=== PATIENT | male | born 1960 ===

== ENCOUNTER 2024-05-19 09:46 | Day surgery (SDC) | payer BC, SELFPAY ==
[2024-05-19 11:57] VITALS: BP 127/90
[2024-05-19 11:58] VITALS: BMI 30.9
[2024-05-19 14:45] VITALS: BP 112/91
[2024-05-19 15:01] VITALS: BP 120/81
== END 2024-05-19 15:15 | disposition home or self-care (01) ==
LOC: GI 09:46
PROVIDERS: ATTENDING PHYSICIAN Internal Medicine Gastroenterology
DX: D12.2 Benign neoplasm of ascending colon (principal); K64.0 First degree hemorrhoids; D12.4 Benign neoplasm of descending colon
CPT/HCPCS: 45390; 45385; 88305

== ENCOUNTER 2024-05-19 22:30 | Inpatient (IN) | payer BC, SELFPAY ==
[2024-05-19 19:39] VITALS: BP 118/69
[2024-05-19 20:12] LABS: % Basophils 0.1 % (0-2); % Immature Granulocytes 0.6 % (0-0.5); % Lymphocytes 3.5 % (20.5-51.1); % Monocytes 5.8 % (1.7-9.3); Absolute Immature Granulocytes 0.1 10^3/uL (0-0.05); Absolute Lymphocytes 0.5 10^3/uL (1.2-3.4); Absolute Monocytes 0.8 10^3/uL (0.1-0.6); Absolute Neutrophils 12.5 10^3/uL (1.4-6.5); Hematocrit 42.4 % (39.0-52.0); Hemoglobin 15.4 g/dL (13.0-18.0); Mean Corp Hgb Conc. 36.3 g/dL (33.0-37.0); Mean Platelet Volume 8.8 fL (7.4-10.4); Nucleated Red Blood Cells % 0 % (-); Platelet Count 283 10^3/uL (130-400); Red Blood Cell Count 4.66 10^6/uL (4.70-6.10); Red Cell Dist. Width 12.8 % (11.5-14.5); White Blood Cell Count 13.9 10^3/uL (4.8-10.8)
--- NOTE | 2024-05-19 20:22 | ED.GENMED ---
History of Present Illness
General
Chief Complaint: Fever
Time Seen by Provider: 05/19/24 20:22
History of Present Illness
History of Present Illness:
HPI: The patient had a colonoscopy with [address] Eugene today. He has had no appetite since 2 nights ago. He has had poor p.o. intake. He developed a fever today. After Tylenol was given he feels somewhat improved. However he has
some vague abdominal. He has had no passage of gas in over a day.
EXAM:
GENERAL: Well appearing in no distress
HEENT: Moist oral mucosa
CARDIOVASCULAR: No murmurs, tachycardic heart rate, regular rhythm, No chest wall tenderness
PULMONARY: No respiratory distress, breath sounds are clear and equal
ABDOMEN: Soft with no peritoneal signs, minimal abdominal tenderness
NEUROLOGIC: Excellent strength all extremities, no coordination deficits
PSYCHIATRIC: Appropriate mental status, normal insight and judgement
EXTREMITIES: Nontender, no edema, moves all extremities equally
SKIN: No rash, no lesions
TIME OF INITIAL ENCOUNTER: 8:30 PM
NUMBER AND COMPLEXITY OF PROBLEMS ADDRESSED AT THE ENCOUNTER
� Chronic conditions affecting care: No significant past medical
� Acute Exacerbation and/or Progression of Chronic Illness: This is an acute problem
� Differential Diagnosis includes: Postprocedural fever, postprocedural gastroparesis, viral syndrome, dehydration, NIDHI
AMOUNT AND/OR COMPLEXITY OF DATA TO BE REVIEWED AND ANALYZED
� I performed an independent evaluation of and my interpretation is:
EKG:
CT: CAT scan personally viewed. Trace free air lateral to the cecum suspicious for small focal perforation
X-rays:
Laboratory Studies: White count 13.9, hemoglobin 15.4, chemistries unremarkable other than bicarb of 20,
Other:
� Review of other/old records: I reviewed the colonoscopy report by Dr. Eugene�3 polyps were removed and the patient also received APC and clips
� Clinical information was obtained by an independent historian: I spoke to the at bedside
� Prescriptions/Medications Considered but not given:
� Further testing considered but not performed:
RISK OF COMPLICATIONS AND/OR MORBIDITY OR MORTALITY OF PATIENT MANAGEMENT
� Social determinants of health affecting care: Lives at home
� Discussion with other providers: Notified GI, Dr. Slade and colorectal surgery, Dr. Trista Slade recommends n.p.o. and antibiotics; hospitalist, Dr. Hughes, for admission
� Escalation of care including admission/observation vs risk of discharge considered: The patient is tachycardic but afebrile here. He reportedly was febrile earlier. His white count of 13.9 with 90% neutrophils. Given the
obstipation with some vague abdominal discomfort after procedure, CT imaging obtained.
Phy Exam
Physical Exam
Physical Exam:
See HPI
Course
Orders/Labs/Results
Orders:
Orders
05/19/24 20:07
COVID-19 Antigen Urgent
Source: Nasal Swab
Complete Blood Count/With Diff Urgent
Comprehensive Metabolic Panel Urgent
05/19/24 20:29
CT Abd/pelvis W Iv Cont Urgent
Comment:
Reason For Exam: post colonoscopy fever, WBC 13.9, obstipation
0.9% Sodium Chloride 1000 ml [Nss] 1,000 ml IV BOLUS
05/19/24 21:44
Piperacillin/Tazo 3.375 Gram [Zosyn] 3.375 gram in 50 ml IV NOW
05/19/24 21:49
NSS 1000mL Bolus WIDE OPEN 0.9% Sodium Chloride 1000 ml [Nss] 1,000 ml IV BOLUS
Abnormal Lab Results
05/19/24
20:07
WBC 13.9 H 10^3/uL
(4.8-10.8)
RBC 4.66 L 10^6/uL
(4.70-6.10)
MCH 33.0 H pg
(27.0-31.0)
Abs Immat Gran (auto) 0.1 H 10^3/uL
(0-0.05)
Absolute Neuts (auto) 12.5 H 10^3/uL
(1.4-6.5)
Absolute Lymphs (auto) 0.5 L 10^3/uL
(1.2-3.4)
Absolute Monos (auto) 0.8 H 10^3/uL
(0.1-0.6)
Immature Gran % 0.6 H %
(0-0.5)
Neutrophils % 90.0 H %
(42.2-75.2)
Lymphocytes % 3.5 L %
(20.5-51.1)
Carbon Dioxide 20 L mmol/L
(22-30)
Glucose 154 H mg/dl
(70-99)
05/19/24 20:07
05/19/24 20:07
Vital Signs
Initial and Last Documented VS:
Initial Vital Signs
Temp Pulse Resp BP Pulse Ox
98.2 F 127 18 118/69 94
05/19/24 19:39 05/19/24 19:39 05/19/24 19:39 05/19/24 19:39 05/19/24 19:39
Last Documented Vital Signs
Temp Pulse Resp BP Pulse Ox
98.2 F 127 18 118/69 94
05/19/24 19:39 05/19/24 19:39 05/19/24 19:39 05/19/24 19:39 05/19/24 19:39
*Critical Care Note
Total Time (30-74mins, 75-104mins- exclusive of procedures): Not Applicable
ED Attending Note
-
Portions of this chart may have been created with voice recognition software.� Occasional wrong word or��sound alike� substitutions may have occurred due to the inherent limitations of voice recognition software.
Discharge Plan
Departure
Patient Disposition: Admit
Date of Disposition: 05/19/24
Time of Disposition: 21:46
Presentation/result/management discussed w/ accepting MD/DO: Hospitalist
Discharge Problem:
Abnormal CT of the abdomen, Fever
Prescriptions:
No Action
aspirin [Aspir-81] 81 mg Tablet,Delayed Release (Dr/Ec)
81 mg PO DAILY
multivitamin
1 tab PO DAILY
Interventions
Interventions:
*Risk Screen - Suicide Last Done: 05/19/24 19:39
*General Assessment Last Done: 05/19/24 19:39
*Neglect/Abuse Screening Last Done: 05/19/24 19:39
ED- Fall Risk Assessment Last Done: 05/19/24 20:43
ED- Neurological Assessment Last Done: 05/19/24 20:43
ED-Skin Assessment Last Done: 05/19/24 20:43
Discharge Date and Time
Print Language: CENTRAL AFRICAN
[2024-05-19 20:29] LABS: COVID-19 Antigen Negative (Negative)
[2024-05-19 20:32] LABS: ALT (SGPT) 39 U/L (0-50); AST (SGOT) 37 U/L (17-59); Albumin 4.4 g/dl (3.5-5.0); Alkaline Phosphatase 67 U/L (38-126); Blood Urea Nitrogen 14 mg/dl (9-20); Calcium 9.4 mg/dl (8.4-10.2); Carbon Dioxide 20 mmol/L (22-30); Chloride 102 mmol/L (98-107); Glucose 154 mg/dl (70-99); Sodium 135 mmol/L (135-145); Total Bilirubin 0.7 mg/dl (0.2-1.3); eGFR > 60.00
[2024-05-19] MEDS: NSS 1000 IV ×2 (20:41→22:07)
--- NOTE | 2024-05-19 21:45 | HPS.HSE ---
Family Physician
-
Family Physician:
Chief Complaint
-
abdominal pain
History of Present Illness
4-year-old with past medical history for A-fib, status postcardiac ablation sleep apnea who underwent colonoscopy and had a 17 mm, 8 mm, 30mm polyps removed from ascending colon , presented to us with no appetite since the colonoscopy . Patient
also complained of abdominal distention, pain and nauseous . He had a temp of 100.2 at home . Patient stated very dizzy, chills. He has had no passage of gas since the colonoscopy. Denied headache. Patient denied chest pain, short of breath.
Denied dysuria hematuria.
Patient received normal saline and Zosyn in ER admitting for further management.
Medical History
Past Medical History
Past Medical History: Reports Other
Additional Past Medical History:
Osteoarthritis
Sleep apnea
Atrial fibs status post cardiac ablation
Punctured lung
Past Surgical History: Reports Other
Additional Past Surgical History:
Cardiac ablation
b/l knee replacement
Social History
Tobacco: Non-smoker
Alcohol: Occasional
Drug: None
Personal:
Living: With Family
Family History
Family History: Not pertinent
Allergies / Home Medications
Allergies reflects when Allergies were last updated in [email or web address].
Home Medications with original date entered in [email or web address]
Allergy/Medication List:
Allergies
Allergy/AdvReac Type Severity Reaction Status Date / Time
No Known Allergies Allergy Unverified 05/19/24 11:45
Home Medications
aspirin 81 mg tablet,delayed release 81 mg PO DAILY 05/19/24
multivitamin 1 tab PO DAILY 05/19/24
Review of Systems
-
Constitutional: Reports No Symptoms
EENT: Reports No Symptoms
Respiratory: Reports No Symptoms
Cardiac: Reports No Symptoms
Abdomen/GI: Reports Abdominal Pain and Nausea
: Reports No Symptoms
Musculoskeletal: Reports No Symptoms
Skin: Reports No Symptoms
Neurological: Reports No Symptoms
Endocrine: Reports No Symptoms
Hematologic/Lymphatic: Reports No Symptoms
Psych: Reports No Symptoms
Physical Exam
Vital Signs
Vital Signs
Temp Pulse Resp BP Pulse Ox
98.2 F 127 18 118/69 94
05/19/24 19:39 05/19/24 19:39 05/19/24 19:39 05/19/24 19:39 05/19/24 19:39
Physical Exam
General: Well Developed, Well Nourished and No Apparent Distress
HEENT: NormoCephalic, Moist mucous membranes and Atraumatic
Respiratory: Clear
Cardiac: S1/S2 and Regular Rhythm; No Murmur or Rub
GI: Soft, Non Tender, Tender and Distended; No Organomegaly
Rectal: Deferred by Provider
Musculoskeletal: No Clubbing, No Cyanosis and No Edema
Skin: No Rash
Neuro: Nonfocal/grossly intact
Laboratory Results
-
05/19/24 20:07
05/19/24 20:07
Laboratory Results
Total Bilirubin 0.7 mg/dl (0.2-1.3) 05/19/24 20:07
AST 37 U/L (17-59) 05/19/24 20:07
ALT 39 U/L (0-50) 05/19/24 20:07
Alkaline Phosphatase 67 U/L (38-126) 05/19/24 20:07
Data Reviewed
-
CT Scan: Report Reviewed by me
Lab Data: Labs Reviewed by me
Impression/Plan
-
# Chills/fever/abdominal pain likely from focal perforation/polypectomy bleeding
-As per GI we will keep patient n.p.o.
-WBC 13.9, hemoglobin 15.4
-CT abdomen pelvis with impression of endoclips present within the cecum. There is adjacent trace free air lateral to the cecum, suspicious for small focal perforation.Colonic diverticulosis without evidence of diverticulitis.
-Will continue IV Zosyn
-GI and surgery consulted
-Tylenol prn for pain
-Dilaudid prn for pain
-Zofran prn for n/v
# History of A-fib
-Will obtain EKG
-Status post cardiac ablation
-patient not on any antiarrhythmic or AC
# History of sleep apnea
-CPAP continued
# DVT prophylaxis
-SCDs
# CODE STATUS
-full code
--- NOTE | 2024-05-19 22:06 | W.PN.UPDATE ---
Update Note
Progress Note Update
This note serves as an addendum to the H&P by qualitative executive researcher JUNIE Veronica BURTON
HPI
64M no significant PMHX s/p colonoscopy with [address] Eugene today.
- report no passage of gas since colonoscopy
- associated with vague abdominal pain
- report onset of fever today. took Tylenol and improved. NEG Covid at ER.
- Reports poor appetite and poor PO intake for last 2 days since 2 nights ago.
Reviewed VS: Afebrile, HR 127, BP 118/70
PE
Gen: Not toxic , NAD
HEENT: anicteric
Neck: supple
Lungs: CTA
Cor: RRR S1 S2
Abdomen: Soft , mildly distended, Mild RLQ tenderness,
DIRECTOR BANKING: AAO3, NFND
MS: No edema
Psych: appropriate
Data
WCC 13.9
Hgb 15.4
Unremarkable BMP
NEG Covid
CT Abd/pelvis W Iv Cont
- Endo clips present within the cecum.
- There is adjacent trace free air lateral to the cecum, suspicious for small focal perforation.
- Colonic diverticulosis without evidence of diverticulitis.
NO PRIOR hospitalist admission:
ASSESSMENT & PLAN
Pending Rx reconciliation
New onset fever 100.5 with chills and rigors
Associated acute RLQ vague abdominal pain and loss passage of gas
s/p colonoscopy ; 3 polyps removed/APC/clips this afyter noon
- Hemodynamically stable
- Abn CT W Iv Cont : adjacent trace free air lateral to the cecum, suspicious for small focal perforation.
- NPO and IVF
- held ASA for last 2 weeks
- Empiric Zosyn
- PRN Analgesia
- Anti emetics PRN
- Trend Hgb and WCC
- GI and CRS consulted
HX A fib s/p cardiac ablation 3 yrs ago, only on ASA
- cont to hold ASA
- EKG
OSAon 4cm H20 CPAP HS
DVT Px: SCD
Code: Full code
IP TLM
[2024-05-19] MEDS: ZOSYN 50 IV (22:07)
[2024-05-19 22:11] VITALS: BP 109/62
[2024-05-20] VITALS (7 sets, daily range): BP systolic 93–125; BP diastolic 55–77; BMI 31.8
[2024-05-20] MEDS: NSS 1000 IV ×2 (01:21→15:20)
[2024-05-20] MEDS: ZOSYN 50 IV ×4 (03:49→20:21)
[2024-05-20 08:03] LABS: Hematocrit 39.6 % (39.0-52.0); Hemoglobin 13.7 g/dL (13.0-18.0); Mean Corp Hgb Conc. 34.6 g/dL (33.0-37.0); Mean Corpuscular Hgb 32.9 pg (27.0-31.0); Mean Corpuscular Volume 95.2 fL (80.0-94.0); Mean Platelet Volume 9.2 fL (7.4-10.4); Platelet Count 237 10^3/uL (130-400); Red Blood Cell Count 4.16 10^6/uL (4.70-6.10)
--- NOTE | 2024-05-20 08:45 | CON.GI ---
Addendum entered and electronically signed by Darrin Slade MD 05/20/24 11:14:
I saw and examined the patient.
The SHEET METAL APPRENTICE's note was reviewed and I agree with the note.
-- History of large colon polyps-s/p colonoscopy with EMR 05/19 -details below. Admitted with abdominal pain/fever/chills/leukocytosis. CT imaging showing small focal perforation in the cecum. Possible component of post polypectomy
syndrome as well .
plan
N.p.o.
Continue IV antibiotic
Continue IV fluid
Colorectal surgery on board
will follow
Original Note:
Consultation
-
Date/Time Consultation Requested: 05/19/242206
Date/Time Consultation Performed: 05/19/24829
Requesting Provider: RACHANA Miller
Performing Provider: Dr. Slade/RACHANA Orozco
Reason for Consultation: focal perforation post polypectomy
Medical History
Chief Complaint / HPI
Chief Complaint: right sided abd pain
History of Present Illness:
64-year-old male with past medical history of atrial fibrillation status postcardiac ablation, obstructive sleep apnea, osteoarthritis, history of adenomatous polyps who was here for outpatient colonoscopy yesterday for endoscopic mucosal resection
of a large colonic polyps found in January [address] Soto. The patient underwent a colonoscopy by Dr. Eugene yesterday afternoon for resection of 3 colon polyps in the ascending colon. The patient had a 6 mm polyp found in the ascending colon that
was removed with a cold snare. A 17 mm polyp found in the ascending colon that was a carpet like, and a 30 mm polyp found in the mid ascending colon (details of the removal will be detailed below). The patient states that he felt okay after the
procedure. He went home. He ate some solid food for dinner. He stated afterward he developed abdominal pain in the right upper quadrant that was dull and aching, low-grade fever of 100.2, chills and general unwell feeling. He proceeded to come
to the emergency room. Initially WBC was 13.9, currently it is 10.0, hemoglobin was 15.4 and is now 13.7, hematocrit is 39.6, platelet count 237, sodium 137, potassium 3.6, chloride 108, CO2 23, BUN 12, creatinine 1.0, glucose 99, total bilirubin
0.7, AST 37, ALT 39, alk phos 67, COVID-negative. CT of the abdomen and pelvis with oral and IV contrast obtained that showed endoclips present within the cecum. There is adjacent trace free air lateral to the cecum, suspicious for small focal
perforation. Colonic diverticulosis without evidence of diverticulitis. The patient was started on Zosyn. He states that last night he had a bowel movement approximately 3 AM. This was around and loose. His pain has improved. He only has mild
tenderness to palpation in the right upper quadrant. He is no longer febrile.
Past Medical History
Past Medical History: Arrhythmias (A-fib status post ablation) and Other (Obstructive sleep apnea, osteoarthritis, adenomatous polyps, punctured lung)
Past Surgical History: Other (Cardiac ablation, bilateral knee replacements)
Social History
Tobacco: Non-Smoker
Alcohol: Occasional
Drug: None
Personal:
Living: With Family
Family History
Family History: Other (No family history gastrointestinal malignancy or IBD)
Allergies / Home Medications
Allergy/AdvReac Type Severity Reaction Status Date / Time
No Known Allergies Allergy Unverified 05/19/24 11:45
�Medication �Instructions �Recorded
aspirin 81 mg tablet,delayed 81 mg PO DAILY 05/19/24
release
multivitamin 1 tab PO DAILY 05/19/24
Review of Systems
-
All other systems: A 12 pt ROS was Negative except as stated above in HPI
Vital Signs
Temp Pulse Resp BP Pulse Ox
97.5 F 77 14 121/74 93
05/20/24 07:12 05/20/24 07:12 05/20/24 07:12 05/20/24 07:12 05/20/24 07:12
Physical Exam
Exam
General: No Apparent Distress
HEENT: Anicteric
Respiratory: Clear (Anterior)
Cardiac: Regular Rhythm
GI: Tender (Mild tenderness pinpoint in the right upper abdomen) and Other (Softly distended, hypoactive bowel sounds)
Musculoskeletal: No Edema
Skin: Warm and Dry
Neuro: AO x 3
Psych: Calm
Results
WBC 10.0 10^3/uL (4.8-10.8) 05/20/24 06:58
Hgb 13.7 g/dL (13.0-18.0) 05/20/24 06:58
Hct 39.6 % (39.0-52.0) 05/20/24 06:58
MCV 95.2 fL (80.0-94.0) H 05/20/24 06:58
Plt Count 237 10^3/uL (130-400) 05/20/24 06:58
Absolute Neuts (auto) 12.5 10^3/uL (1.4-6.5) H 05/19/24 20:07
Sodium 135 mmol/L (135-145) 05/19/24 20:07
Potassium 4.0 mmol/L (3.5-5.1) 05/19/24 20:07
Chloride 102 mmol/L (98-107) 05/19/24 20:07
Carbon Dioxide 20 mmol/L (22-30) L 05/19/24 20:07
BUN 14 mg/dl (9-20) 05/19/24 20:07
Creatinine 1.0 mg/dL (0.7-1.3) 05/19/24 20:07
Calcium 9.4 mg/dl (8.4-10.2) 05/19/24 20:07
Total Bilirubin 0.7 mg/dl (0.2-1.3) 05/19/24 20:07
AST 37 U/L (17-59) 05/19/24 20:07
ALT 39 U/L (0-50) 05/19/24 20:07
Alkaline Phosphatase 67 U/L (38-126) 05/19/24 20:07
Diagnostic Image Results:
CT Abd/Pelvis with oral/IV contrast:
Endoclips present within the cecum. There is adjacent trace free air lateral to the cecum, suspicious for small focal perforation.
Colonic diverticulosis without evidence of diverticulitis.
Prior GI Procedures:
EGD:
Colonoscopy: 05/19/24 (Dr. Eugene) - Preparation of the colon was fair.
- Hemorrhoids found on perianal exam.
- The examined portion of the ileum was normal.
- Stool in the descending colon, in the transverse
colon, in the ascending colon and in the cecum.
- One 6 mm polyp in the ascending colon, removed with
a cold snare. Resected and retrieved.
- One 17 mm polyp in the ascending colon, removed with
mucosal resection. Resected and retrieved. Treated
with argon plasma coagulation (APC). Clips (MR
conditional) were placed.
- One 30 mm polyp in the mid ascending colon, removed
with mucosal resection. Resected and retrieved.
Treated with argon plasma coagulation (APC). Clips (MR
conditional) were placed. Tattooed.
- Internal hemorrhoids.
- Mucosal resection was performed. Resection and
retrieval were complete.
- Mucosal resection was performed. Resection and
retrieval were complete.
Assessment / Plan
-
64-year-old male with past medical history of atrial fibrillation status postcardiac ablation, obstructive sleep apnea, osteoarthritis, history of adenomatous polyps who was here for outpatient colonoscopy yesterday for endoscopic mucosal resection
of a large colonic polyps found in January [address] Soto. The patient underwent a colonoscopy by Dr. Eugene yesterday afternoon for resection of 3 colon polyps in the ascending colon. The patient had a 6 mm polyp found in the ascending colon that
was removed with a cold snare. A 17 mm polyp found in the ascending colon that was a carpet like, removed with mucosal resection. Treated with argon plasma coagulation. Clips placed. 30 mm polyp found in the mid ascending colon, removed with
mucosal resection. Treated with APC. Clips placed. Tattooed. Patient was discharged home initially feeling well. Then developed low-grade temperature 100.2. Localized tenderness to right upper quadrant and abdominal distention after eating
solid meal. Initial white count 13 now down to 10.0. CT abdomen pelvis with oral and IV contrast shows endoclips present within the cecum. Adjacent trace free air lateral to the cecum. Suspicious for small focal perforation. Started on Zosyn.
Had brown soft bowel movement. Pain improved. Not requiring any analgesia. Continues to be NPO.
Impression:
Right upper quadrant pain status post colonoscopy with endoscopic mucosal resection of large ascending colon polyps-> abnormal CT findings suspicious for small focal perforation. Also could question post polypectomy syndrome.
Plan:
-N.p.o.
-Colorectal surgery consulted, they have seen patient. Appreciate consult and follow-up.
-Continue Zosyn
-Further recommendations to be forthcoming.
-
-
Thank you for consultation and allowing me to participate in the patient's care. Please call the agricultural equipment salesperson GI physician during the after hours with any questions or concerns.
[2024-05-20 08:56] LABS: Blood Urea Nitrogen 12 mg/dl (9-20); Calcium 8.7 mg/dl (8.4-10.2); Carbon Dioxide 23 mmol/L (22-30); Chloride 108 mmol/L (98-107); Estimated Creatinine Clearance 105 ml/min; Glucose 99 mg/dl (70-99); Potassium 3.6 mmol/L (3.5-5.1); Sodium 137 mmol/L (135-145); eGFR > 60.00
--- NOTE | 2024-05-20 09:05 | CON.CRS ---
Medical History
-
Chief Complaint: abdominal pain
History of Present Illness:
Mr. Emmanuel is a 64 yo male who underwent colonoscopy yesterday with Dr. Eugene. A polypectomy x3 was preformed, 2 of polyps were quite large in the ascending colon (17mm & 30mm) with endoclips placed. He was discharged to home post procedure and
later that day developed pain and low grade fever/chills causing him to present for evaluation through the ED. He currently reports focal pain to the RLQ which is not severe. He denies nausea or vomiting. He passed 2 loose stools overnight as well
as some flatus without difficulty.
Past Medical History
Past Medical History: Arrhythmias (AF s/p ablation) and Other (ALVAREZ, OA, Adenomatous polyps, punctured lung)
Past Surgical History: Cardiac (ablation for AF) and Orthopedic (BL TKR)
Social History
Tobacco: Non-Smoker
Alcohol: Occasional
Personal:
Living: With Family
Family History
Family History: Reviewed & Not Pertinent
Allergies / Home Medications
Allergy/AdvReac Type Severity Reaction Status Date / Time
No Known Allergies Allergy Unverified 05/19/24 11:45
�Medication �Instructions �Recorded �Confirmed �Type
aspirin 81 mg tablet,delayed 81 mg PO DAILY 05/19/24 05/19/24 History
release
multivitamin 1 tab PO DAILY 05/19/24 05/19/24 History
Review of Systems
-
History Source: Patient
All other systems: Negative unless noted
A 10 point review of systems was completed, and was negative except as per HPI.
Physical Exam
Vital Signs
Temp 97.5 F 05/20/24 07:12
Pulse 77 05/20/24 07:12
Resp Rate 14 05/20/24 07:12
Blood pressure 121/74 05/20/24 07:12
SaO2 93 05/20/24 07:12
05/19/24 05/20/2405/21/24
06:59 06:59 06:59
Actual Weight 115.354 kg
Body Mass Index (BMI) 31.8
Lab Results / Allergies
05/20/24 06:58
05/20/24 06:58
WBC 10.0 10^3/uL (4.8-10.8) 05/20/24 06:58
Hgb 13.7 g/dL (13.0-18.0) 05/20/24 06:58
Hct 39.6 % (39.0-52.0) 05/20/24 06:58
Plt Count 237 10^3/uL (130-400) 05/20/24 06:58
Abs Immat Gran (auto) 0.1 10^3/uL (0-0.05) H 05/19/24 20:07
Neutrophils % 90.0 % (42.2-75.2) H 05/19/24 20:07
Allergy/AdvReac Type Severity Reaction Status Date / Time
No Known Allergies Allergy Unverified 05/19/24 11:45
Physical Exam
General: Well Developed, Well Nourished and No Apparent Distress
HEENT: Moist Mucous Membranes
Respiratory: Non Labored Respirations
GI: Soft, Tender (RLQ), Distended (mild) and Other (No rebound/guarding/rigidity )
Skin: Warm and Dry
Neuro: Awake, Alert and AO x 3
Psych: Calm
Data Reviewed
-
CT Scan: Image Personally Visualized and interpreted, Report Reviewed by me, Discussed with Physician and Discussed with Patient
Labs: Labs Reviewed by me, Discussed with Physician and Discussed with Patient
Old Records: Reviewed
Assessment / Plan
-
64 yo male with PPD #1 colonoscopy with polypectomy x3, 2 of which were quite large in the ascending colon (17mm & 30mm) with endoclips placed who developed pain post procedure after d/c to home and low grade fever/chills at home. Presenting for
evaluation with CT imaging demonstrating adjacent trace free air lateral to the cecum near Endoclip site, suspicious for small focal perforation. Afebrile with stable vitals. Leukocytosis on presentation which has resolved. Pain is focal without
peritoneal signs.
--No plans for emergent surgery at this time, will follow with supportive measures for improvement
--Tentative CLD later today if continues to do well
--Follow on antibiotics
Medical management as per primary team
--- NOTE | 2024-05-20 12:29 | W.PN.HOSP.TC ---
Today's Communication/Plan
-
Continue antibiotics and continue to monitor
Assessment / Plan
Assessment / Plan
Physical Exam
General: Not in acute distress
HEENT: Normocephalic, Atraumatic
Respiratory: Clear
Cardiac: S1/S2 and Regular Rhythm
GI: Soft, Non Tender, Tender and Distended
Musculoskeletal: No Cyanosis and No Edema
Skin: Warm. Dry.
Neuro: Nonfocal/grossly intact
Assessment/Plan
# Chills/fever/abdominal pain likely from focal perforation/polypectomy bleeding
# History of large colon polyps-s/p colonoscopy with EMR 05/19
# s/p colonoscopy with [address] Eugene on 05/19/24
-As per GI we will keep patient n.p.o.
-CT abdomen pelvis with impression of endoclips present within the cecum. There is adjacent trace free air lateral to the cecum, suspicious for small focal perforation.Colonic diverticulosis without evidence of diverticulitis.
-Continue IV Zosyn
-GI and surgery consulted, appreciate evaluation and recommendations
-Pain control
# History of A-fib s/p cardiac ablation 3 yrs ago, only on ASA
-Status post cardiac ablation
-patient not on any antiarrhythmic or AC
# History of sleep apnea
-CPAP continued
# obstructive sleep apnea
# osteoarthritis
#Diverticulosis
# DVT prophylaxis
-SCDs -- checking with colorectal team and GI about whether Lovenox okay
# CODE STATUS
-full code
Anticipated Discharge: 24 - 48 hours
Subjective/Interval History
-
Date of Service: May 20, 2024
Patient was seen and examined. Other than some right sided abdominal pain, he denied any other new, significant symptoms or complaints.
Objective Data
-
Labs:
Laboratory Results
05/20/24
06:58
WBC 10.0
Hgb 13.7
Hct 39.6
Plt Count 237
Sodium 137
Potassium 3.6
Chloride 108 H
Carbon Dioxide 23
BUN 12
Creatinine 1.0
Glucose 99
Calcium 8.7
Vital Signs:
Vital Signs
Temp Pulse Resp BP Pulse Ox
98 F 68 14 115/73 96
05/20/24 11:24 05/20/24 11:24 05/20/24 11:24 05/20/24 11:24 05/20/24 11:24
I&O
05/19/24 05/20/24 05/21/24
06:59 06:59 06:59
Intake Total 450 / 450
Balance 450 / 450
--- NOTE | 2024-05-20 15:57 | CM ---
met with patient at bedside.he lives with his in [facility] with [address],his bed and bath is on the second level.he amb i and is I with his adl.his pcp is dr nicol dailey and he uses [facility] in [place].no hx of vn or ip rehab.
PMH:had colonoscopy and polypectomy x3 today
patient adm with fever/chills/poor appetite following a colonoscopy/polypectomy x3 .patient with focal perforation/bleeding.he is on clear liquids,ivf,iv zosyn,iv dalaudid,no surgical intervention.Plan is dc home with no needs.
[2024-05-20] MEDS: LOVENOX 40 MG SC (17:36)
[2024-05-21 03:42] VITALS: BP 132/76
[2024-05-21] MEDS: ZOSYN 50 IV ×2 (03:57→09:46)
[2024-05-21] MEDS: NSS 1000 IV (03:57)
[2024-05-21 07:01] LABS: Hematocrit 38.4 % (39.0-52.0); Hemoglobin 13.6 g/dL (13.0-18.0); Mean Corp Hgb Conc. 35.4 g/dL (33.0-37.0); Mean Corpuscular Hgb 33.7 pg (27.0-31.0); Mean Corpuscular Volume 95.3 fL (80.0-94.0); Mean Platelet Volume 9.1 fL (7.4-10.4); Platelet Count 212 10^3/uL (130-400); Red Blood Cell Count 4.03 10^6/uL (4.70-6.10); Red Cell Dist. Width 12.7 % (11.5-14.5)
[2024-05-21 07:19] LABS: Blood Urea Nitrogen 9 mg/dl (9-20); Calcium 8.9 mg/dl (8.4-10.2); Carbon Dioxide 25 mmol/L (22-30); Chloride 108 mmol/L (98-107); Estimated Creatinine Clearance 95 ml/min; Glucose 95 mg/dl (70-99); Sodium 140 mmol/L (135-145); eGFR > 60.00
[2024-05-21 07:59] VITALS: BP 121/79
[2024-05-21 11:11] VITALS: BP 127/78
--- NOTE | 2024-05-21 11:23 | W.PN.HOSP.TC ---
Today's Communication/Plan
-
Doing better, diet advancement as per surgery and GI
Assessment / Plan
Assessment / Plan
Physical Exam
General: Not in acute distress
HEENT: Normocephalic, Atraumatic
Respiratory: Clear
Cardiac: S1/S2 and Regular Rhythm
GI: Soft, Non Tender, Distended. Positive bowel sounds.
Musculoskeletal: No Cyanosis and No Edema
Skin: Warm. Dry.
Neuro: Nonfocal/grossly intact
Assessment/Plan
# Chills/fever/abdominal pain likely from focal perforation/polypectomy bleeding
# History of large colon polyps-s/p colonoscopy with EMR 05/19
# s/p colonoscopy with [address] Eugene on 05/19/24
-As per GI we will keep patient n.p.o.
-CT abdomen pelvis with impression of endoclips present within the cecum. There is adjacent trace free air lateral to the cecum, suspicious for small focal perforation.Colonic diverticulosis without evidence of diverticulitis.
-Continue IV Zosyn
-GI and surgery consulted, appreciate evaluation and recommendations
-Pain control
# History of A-fib s/p cardiac ablation 3 yrs ago, only on ASA
-Status post cardiac ablation
-patient not on any antiarrhythmic or AC
# History of sleep apnea
-CPAP continued
# obstructive sleep apnea
# osteoarthritis
#Diverticulosis
# DVT prophylaxis
-Lovenox
# CODE STATUS
-full code
Anticipated Discharge: 24 - 48 hours
Subjective/Interval History
-
Date of Service: May 21, 2024
Patient was seen and examined. He reported feeling okay, and denied any new symptoms or complaints.
Objective Data
-
Labs:
Laboratory Results
05/21/24
06:33
WBC 5.0
Hgb 13.6
Hct 38.4 L
Plt Count 212
Sodium 140
Potassium 4.0
Chloride 108 H
Carbon Dioxide 25
BUN 9
Creatinine 1.1
Glucose 95
Calcium 8.9
Vital Signs:
Vital Signs
Temp Pulse Resp BP Pulse Ox
98.3 F 78 16 121/79 94
05/21/24 07:59 05/21/24 07:59 05/21/24 07:59 05/21/24 07:59 05/21/24 07:59
I&O
05/20/24 05/21/24 05/22/24
06:59 06:59 06:59
Intake Total 450 / 450 2200 / 2200
Output Total 525 / 525
Balance 450 / 450 1675 / 1675
--- NOTE | 2024-05-21 11:29 | W.PN.GI.CBS2 ---
Today's Communication / Plan
-
Advance diet slowly as per surgery
Continue antibiotic
Assessment / Plan
-
64-year-old male with past medical history of atrial fibrillation status postcardiac ablation, obstructive sleep apnea, osteoarthritis, history of adenomatous polyps who was here for outpatient colonoscopy yesterday for endoscopic mucosal resection
of a large colonic polyps found in January [address] Soto. The patient underwent a colonoscopy by Dr. Eugene yesterday afternoon for resection of 3 colon polyps in the ascending colon. The patient had a 6 mm polyp found in the ascending colon that
was removed with a cold snare. A 17 mm polyp found in the ascending colon that was a carpet like, removed with mucosal resection. Treated with argon plasma coagulation. Clips placed. 30 mm polyp found in the mid ascending colon, removed with
mucosal resection. Treated with APC. Clips placed. Tattooed. Patient was discharged home initially feeling well. Then developed low-grade temperature 100.2. Localized tenderness to right upper quadrant and abdominal distention after eating
solid meal. Initial white count 13 now down to 10.0. CT abdomen pelvis with oral and IV contrast shows endoclips present within the cecum. Adjacent trace free air lateral to the cecum. Suspicious for small focal perforation. Started on Zosyn.
Had brown soft bowel movement. Pain improved. Not requiring any analgesia. Continues to be NPO.
-- History of large colon polyps-s/p colonoscopy with EMR 05/19 -details below. Admitted with abdominal pain/fever/chills/leukocytosis. CT imaging showing small focal perforation in the cecum. Possible component of post polypectomy
syndrome as well . Clinically stable today
plan
Okay to advance to full liquid then low residual if surgery agreeable
Continue IV antibiotic
Colorectal surgery on board
will follow
Total Time Spent with Patient (in minutes): 35
Subjective
Subjective
Date of Service: May 21, 2024
Doing well. Tolerating clear liquid diet. Denies any abdominal pain/nausea/vomiting/fever
Objective
Data Reviewed
Laboratory Data:
Laboratory Results
05/21/24 06:33
05/21/24 06:33
Laboratory Results
Total Bilirubin 0.7 mg/dl (0.2-1.3) 05/19/24 20:07
AST 37 U/L (17-59) 05/19/24 20:07
ALT 39 U/L (0-50) 05/19/24 20:07
Alkaline Phosphatase 67 U/L (38-126) 05/19/24 20:07
Vital Signs and I&O:
Vital Signs
Temp Pulse Resp BP Pulse Ox
98.3 F 78 16 121/79 94
05/21/24 07:59 05/21/24 07:59 05/21/24 07:59 05/21/24 07:59 05/21/24 07:59
I&O
05/20/24 05/21/24 05/22/24
06:59 06:59 06:59
Intake Total 450 / 450 2200 / 2200
Output Total 525 / 525
Balance 450 / 450 1675 / 1675
Physical Exam
Physical Exam
GI: Soft, Non Distended and Tender (Focal tenderness right lower quadrant)
--- NOTE | 2024-05-21 12:59 | W.PN.GS2 ---
Today's Communication / Plan
-
LRD
Assessment / Plan
-
64 yo male with PPD #1 colonoscopy with polypectomy x3, 2 of which were quite large in the ascending colon (17mm & 30mm) with endoclips placed who developed pain post procedure after d/c to home and low grade fever/chills at home. CT imaging
demonstrating adjacent trace free air lateral to the cecum near Endoclip site, suspicious for small focal perforation.
Afebrile with stable vitals. Leukocytosis on presentation which has resolved. Pain is focal without peritoneal signs.
--Ok for LRD
--Clear for d/c from surgical standpoint once tolerating diet
--Would continue on augmentin upon d/c for 7 additional days
Subjective Data
-
Date of Service: May 21, 2024
Patient seen and examined at bedside with Dr. Urias. Janett n/v. Tolerating diet. Minimal RLQ discomfort.
Objective Data
-
Intake and Output
05/20/24 05/21/24 05/22/24
06:59 06:59 06:59
Intake Total 450 / 450 2200 / 2200
Output Total 525 / 525
Balance 450 / 450 1675 / 1675
Intake:
Oral fluids 0 / 0 440 / 440
IV fluids (Total) 450 / 450 1760 / 1760
Output:
Urine, Voided 525 / 525
Other:
Number of approximated MODERATE 1 1
amounts of urine
Vital Signs
Temp Pulse Resp BP Pulse Ox
98.3 F 73 16 127/78 94
05/21/24 11:11 05/21/24 11:11 05/21/24 11:11 05/21/24 11:11 05/21/24 11:11
Lab Results
05/21/24 06:33
05/21/24 06:33
Calcium 8.9 mg/dl (8.4-10.2) 05/21/24 06:33
Total Bilirubin 0.7 mg/dl (0.2-1.3) 05/19/24 20:07
AST 37 U/L (17-59) 05/19/24 20:07
ALT 39 U/L (0-50) 05/19/24 20:07
Alkaline Phosphatase 67 U/L (38-126) 05/19/24 20:07
Total Protein 7.0 g/dl (6.3-8.2) 05/19/24 20:07
Albumin 4.4 g/dl (3.5-5.0) 05/19/24 20:07
Physical Exam
-
NAD
ABD soft, nd, minimal tenderness to RLQ
--- NOTE | 2024-05-21 13:11 | W.DS.TRANS ---
DC Summary - [employer]
-
Discharge Instructions:
Discharge Diagnosis/Procedures # Chills/fever/abdominal pain likely from focal
perforation/polypectomy bleeding
# History of large colon polyps-s/p colonoscopy
with EMR 05/19
# s/p colonoscopy with 3 polyps removed with
Jabier on 05/19/24
# History of A-fib s/p cardiac ablation 3 yrs
ago, only on ASA
# History of sleep apnea
# Obstructive sleep apnea
# Osteoarthritis
# Diverticulosis
CT ABDOMEN PELVIS RESULTS ( PER RADIOLOGIST'
S REPORT)
'IMPRESSION:
Endoclips present within the cecum. There is
adjacent trace free air lateral to the cecum,
suspicious for small focal perforation.
Colonic diverticulosis without evidence of
diverticulitis.'
Diet Low Residue
Activity As tolerated
Instructions: Amoxicillin and Clavulanate
Stand-Alone Forms:
Changes to Home Medications: Yes
Discharge Medications:
DC Medications w/original date entered in [employer] ([facility])
aspirin 81 mg tablet,delayed release 81 mg PO DAILY Blood Clot Prevention/Tx 05/19/24
multivitamin 1 tab PO DAILY Supplement 05/19/24
amoxicillin 875 mg-potassium clavulanate 125 mg tablet 1 tab PO Q12H 7 days #14 tabs 05/21/24
Home Medication Changes
Amoxicillin-Clavulanate is a new medication.
Pending Results: Yes
Additional Pending Results:
Blood Culture Results
Total time spent discharging patient (in min): 35
--- NOTE | 2024-05-21 15:30 | CM ---
patient is stable to dc home with no needs.
== END 2024-05-21 14:32 | disposition home or self-care (01) | DRG 919 ==
LOC: 4 EAST ACU 22:30
PROVIDERS: Emergency Medicine; Registered Nurse; ADMITTING PHYSICIAN Internal Medicine; ATTENDING PHYSICIAN Hospitalist; CONSULT PHYSICIAN Internal Medicine Gastroenterology; CONSULT PHYSICIAN Surgery; EMERGENCY PHYSICIAN Emergency Medicine; FAMILY PHYSICIAN Family Medicine
DX: K91.840 Postprocedural hemorrhage of a digestive system organ or structure following a digestive system procedure (principal); K63.1 Perforation of intestine (nontraumatic); K57.30 Diverticulosis of large intestine without perforation or abscess without bleeding; G47.30 Sleep apnea, unspecified; M19.90 Unspecified osteoarthritis, unspecified site; R50.9 Fever, unspecified; Z79.82 Long term (current) use of aspirin; Z96.653 Presence of artificial knee joint, bilateral; Z86.010 Personal history of colon polyps; Z11.52 Encounter for screening for COVID-19; Y83.8 Other surgical procedures as the cause of abnormal reaction of the patient, or of later complication, without mention of misadventure at the time of the procedure
CPT/HCPCS: 88305; 74177; 80048; 80053; 85025; 85027; 87040; 87811; 93005; 96361; 96374; 99285; Q9967

== ENCOUNTER 2025-01-05 06:24 | Day surgery (SDC) | payer BC, SELFPAY ==
[2025-01-05 13:35] VITALS: BP 110/83
[2025-01-05 13:41] VITALS: BMI 30.3
[2025-01-05 13:42] VITALS: BMI 30.3
[2025-01-05 15:50] VITALS: BP 119/78
[2025-01-05 16:00] VITALS: BP 122/76
[2025-01-05 16:15] VITALS: BP 117/80
== END 2025-01-05 16:26 | disposition home or self-care (01) ==
LOC: GI 06:24
PROVIDERS: ATTENDING PHYSICIAN Internal Medicine Gastroenterology
DX: Z09 Encounter for follow-up examination after completed treatment for conditions other than malignant neoplasm (principal); K64.0 First degree hemorrhoids; D12.2 Benign neoplasm of ascending colon; Z86.0101 Personal history of adenomatous and serrated colon polyps; Z98.890 Other specified postprocedural states
CPT/HCPCS: 45385; 45380; 88305